=== PATIENT | female | born 1945 | race Caucasian/White ===

== ENCOUNTER 2018-03-10 22:41 | Inpatient (IN) | payer MEDICARE, OTHER ==
[~2018-03-10] VITALS: Ht 167.6 cm; Wt 72.0 kg
[~2018-03-10 22:41] MED LIST: ACET-812 PO; CANA300T PO; CELE-193 PO; CLOP75TA15 PO; DICL100G15 TOP; DULO60CA64 PO; ERGO500014 PO; ESTR0.3T3 PO; EZET10TA13 PO; INSU100I5 SQ; INSU100V2 SQ; LEVO500T89 PO; LEVO5TAB13 PO; LIDO700A5 TOP; LOSA50TA37 PO; MAGN250T29 PO; METF10002 PO; MULT-1085 PO; NEBI5TAB10 PO; PREG100C PO; VITA1CAP PO; [UNRECOGNIZED DRUG - CODE] PO
[2018-03-10] MEDS ORDERED: morphine 4 MG/ML inj SYRINge IV ONE (23:10)
[2018-03-10] MEDS ORDERED: ondansetron/PF 4mg/2ml inj IV ONE (23:10)
[2018-03-10] MEDS ORDERED: iohexol 350MG/ML 100ml bottle IV ONE (23:24)
[2018-03-10 23:29] LABS: BASOPHILS # (AUTO) 0.1 X10'3 (0-0.2); BASOPHILS % (AUTO) 0.8 % (0-1); EOSINOPHILS # (AUTO) 0.1 X10'3 (0-0.9); EOSINOPHILS % (AUTO) 0.9 % (0-6); HEMATOCRIT 39.9 % (35.0-45.0); HEMOGLOBIN 13.1 g/dl (12.0-16.0); LYMPHOCYTES # (AUTO) 1.1 X10'3 (1.1-4.8); LYMPHOCYTES % (AUTO) 8.5 % (21-51); MEAN CORPUSCULAR HEMOGLOBIN 28.7 PG (27.0-31.0); MEAN CORPUSCULAR HGB CONC 32.9 % (33.0-36.5); MEAN CORPUSCULAR VOLUME 87.2 FL (78-98); MEAN PLATELET VOLUME 8.7 FL (7.4-10.4); MONOCYTES # (AUTO) 0.7 X10'3 (0-0.9); MONOCYTES % (AUTO) 5.1 % (2-12); NEUTROPHILS % (AUTO) 84.7 % (42-75); PLATELET COUNT 176 X10'3 (140-440); RED BLOOD COUNT 4.57 X10'6 (4.20-5.60); RED CELL DISTRIBUTION WIDTH 14.5 % (11.5-14.5)
[2018-03-10 23:46] LABS: ALANINE AMINOTRANSFERASE 33 U/L (12-78); ALBUMIN 3.2 G/DL (3.4-5.0); ALBUMIN/GLOBULIN RATIO 0.9 (1.1-1.5); ALKALINE PHOSPHATASE 80 IU/L (46-116); ANION GAP 10 (8-16); ASPARTATE AMINO TRANSFERASE 19 U/L (10-37); BILIRUBIN,TOTAL 0.4 MG/DL (0.1-1.0); BLOOD UREA NITROGEN 17 MG/DL (7-18); BUN/CREATININE RATIO 22.7 (6.6-38.0); CALCIUM 9.5 MG/DL (8.5-10.1); CHLORIDE 104 MMOL/L (99-107); CREATININE 0.75 MG/DL (0.40-0.90); GLUCOSE 216 MG/DL (70-104); POTASSIUM 4.4 MMOL/L (3.5-5.1); SODIUM 140 MMOL/L (135-145); TOTAL CARBON DIOXIDE 26.2 MMOL/L (24-32); TOTAL PROTEIN 6.7 G/DL (6.4-8.2); eGFR 76 ML/MIN
[2018-03-11] MEDS ORDERED: morphine 4 MG/ML inj SYRINge IV ONE ×2 (00:30→01:40)
[2018-03-11] MEDS ORDERED: ketorolac tromethamine 15mg/ml inj. IV PRN (02:35)
[2018-03-11] MEDS ORDERED: orphenadrine citrate 60mg/2ml inj. IM PRN (02:35)
[2018-03-11] MEDS ORDERED: LIDOcaine 5% patch TP PRN (02:40)
[2018-03-11] MEDS ORDERED: ondansetron/PF 4mg/2ml inj IV PRN (02:45)
[2018-03-11] MEDS ORDERED: diphenhydrAMINE 25mg capsule PO PRN (02:45)
[2018-03-11] MEDS ORDERED: acetaminophen 650mg rectal suppository RC PRN (02:45)
[2018-03-11] MEDS ORDERED: mag hydrox/Alum hydrox/simeth 30ml oral suspension PO PRN (02:45)
[2018-03-11] MEDS ORDERED: diphenhydrAMINE 50 mg/ml inj IV PRN (02:45)
[2018-03-11] MEDS ORDERED: HYDROcodone/acetaminophen 5mg/325mg tablet PO PRN (02:45)
[2018-03-11] MEDS ORDERED: acetaminophen 325mg tablet PO PRN ×2 (02:45)
[2018-03-11] MEDS ORDERED: MESSAGE TO PHARMACY PO ONE (02:45)
[2018-03-11] MEDS ORDERED: metoclopramide 5 mg/ml inj IV PRN (02:45)
[2018-03-11] MEDS ORDERED: HYDROmorphone inj. 0.5 MG/0.5 ML DISP.SYRIN IV PRN ×2 (02:45)
[2018-03-11] MEDS ORDERED: glucagon, human recombinant 1mg kit SUBCUT PRN (02:45)
[2018-03-11] MEDS ORDERED: morphine 4 MG/ML inj SYRINge IV PRN ×2 (02:45)
[2018-03-11] MEDS ORDERED: dextrose 50%-water 50ml dispensing syringe IV PRN ×2 (02:45)
[2018-03-11] MEDS ORDERED: magnesium hydroxide 30ml (MOM) UD suspension PO PRN (02:45)
[2018-03-11] MEDS ORDERED: dextrose ORAL solution 15 GM/59 ML bottle PO PRN (02:45)
[2018-03-11] MEDS ORDERED: bisacodyl 10mg suppository rectal RC PRN (02:45)
[2018-03-11 03:15] LABS: PARTIAL THROMBOPLASTIN TIME 27 SECONDS (22-32); PROTHROMBIN TIME 10.4 SECONDS (9.0-12.0)
[2018-03-11] MEDS: ketorolac tromethamine 15mg/ml inj. IV PRN ×2 (03:16→21:26)
[2018-03-11] MEDS: normal saline 1000ml 1,000 ML IV SCH ×3 (03:17→15:58)
[2018-03-11 03:51] LABS: CREATINE KINASE 78 U/L (26-192); MAGNESIUM 1.7 MG/DL (1.5-2.4)
[2018-03-11 04:04] LABS: C-REACTIVE PROTEIN 1.81 MG/DL (0.0-0.5)
[2018-03-11 04:15] VITALS: BP 134/52
[2018-03-11 04:32] LABS: CLARITY,URINE CLEAR (Clear); COLOR,URINE YELLOW (Yellow); GLUCOSE, URINE >=1000 mg/dl (Neg); KETONES,URINE 15 mg/dl (Neg); LEUKOCYTE ESTERASE ,URINE NEGATIVE (Neg); NITRITES, URINE NEGATIVE (Neg); OCCULT BLOOD,URINE NEGATIVE (Neg); PROTEIN,URINE NEGATIVE (Neg); UROBILINOGEN,URINE 0.2 E.U/dL (0.2-1.0)
[2018-03-11 04:35] LABS: UA COLLECTION TYPE CLN CATCH MIDSTREAM
[2018-03-11 04:38] LABS: BACTERIA,URINE NONE SEEN /HPF (Neg); RBC,URINE NONE SEEN /HPF (0-2); SQUAMOUS EPITHELIAL CELL,UR FEW /LPF (FEW); WBC,URINE 0-4 /HPF (0-4)
[2018-03-11 06:00] VITALS: BP 136/61
[2018-03-11] MEDS ORDERED: acetaminophen 1,000mg/100ml IV 100 ML IV SCH (08:00)
[2018-03-11] MEDS: losartan 50mg tablet PO SCH (09:05)
[2018-03-11] MEDS: duloxetine 30mg CAPSULE.DR PO SCH ×2 (09:05→20:32)
[2018-03-11] MEDS: pregabalin 25mg capsule PO SCH ×2 (09:06→20:32)
[2018-03-11] MEDS: ezetimibe 10mg tablet PO SCH (09:06)
[2018-03-11 10:00] VITALS: BP 136/51
[2018-03-11] MEDS: HYDROcodone/acetaminophen 10/325mg tab PO PRN ×2 (11:38→18:15)
[2018-03-11 12:00] LABS: BASOPHILS % (AUTO) 0.2 % (0-1); EOSINOPHILS # (AUTO) 0.3 X10'3 (0-0.9); EOSINOPHILS % (AUTO) 2.3 % (0-6); HEMOGLOBIN 12.7 g/dl (12.0-16.0); LYMPHOCYTES % (AUTO) 8.9 % (21-51); MEAN CORPUSCULAR HEMOGLOBIN 28.7 PG (27.0-31.0); MEAN CORPUSCULAR HGB CONC 32.5 % (33.0-36.5); MEAN CORPUSCULAR VOLUME 88.4 FL (78-98); MEAN PLATELET VOLUME 8.8 FL (7.4-10.4); MONOCYTES # (AUTO) 0.7 X10'3 (0-0.9); MONOCYTES % (AUTO) 6.7 % (2-12); NEUTROPHILS % (AUTO) 81.9 % (42-75); PLATELET COUNT 179 X10'3 (140-440); RED BLOOD COUNT 4.41 X10'6 (4.20-5.60); RED CELL DISTRIBUTION WIDTH 15.2 % (11.5-14.5); WHITE BLOOD COUNT 10.9 X10'3 (4.5-11.0)
[2018-03-11] MEDS: dextrose ORAL solution 15 GM/59 ML bottle PO PRN ×2 (13:30→13:43)
[2018-03-11] MEDS ORDERED: INSU100I29 SQ (15:26)
[2018-03-11] MEDS ORDERED: ERGO400C PO (15:26)
[2018-03-11 17:00] VITALS: BP 149/50
[2018-03-11] MEDS: clopidogrel 75mg tablet PO SCH (18:15)
[2018-03-11] MEDS: loratadine 10mg tablet PO SCH (20:32)
[2018-03-11] MEDS ORDERED: temazepam 15mg capsule PO PRN (21:00)
[2018-03-11] MEDS: insulin glargine (Lantus) pen - multi-dose SQ SCH (21:38)
[2018-03-11 22:00] VITALS: BP 166/63
[2018-03-12 02:00] VITALS: BP 142/49
[2018-03-12] MEDS: normal saline 1000ml 1,000 ML IV SCH ×2 (02:17→23:50)
[2018-03-12] MEDS: HYDROcodone/acetaminophen 10/325mg tab PO PRN ×4 (02:18→23:50)
[2018-03-12 06:00] VITALS: BP 109/28
[2018-03-12 06:24] LABS: BASOPHILS % (AUTO) 0.5 % (0-1); EOSINOPHILS # (AUTO) 0.3 X10'3 (0-0.9); EOSINOPHILS % (AUTO) 3.5 % (0-6); HEMATOCRIT 35.5 % (35.0-45.0); HEMOGLOBIN 11.7 g/dl (12.0-16.0); LYMPHOCYTES # (AUTO) 1.4 X10'3 (1.1-4.8); LYMPHOCYTES % (AUTO) 18.8 % (21-51); MEAN CORPUSCULAR HEMOGLOBIN 28.8 PG (27.0-31.0); MEAN CORPUSCULAR VOLUME 87.4 FL (78-98); MEAN PLATELET VOLUME 8.7 FL (7.4-10.4); MONOCYTES # (AUTO) 0.9 X10'3 (0-0.9); MONOCYTES % (AUTO) 12.3 % (2-12); NEUTROPHILS # (AUTO) 4.8 X10'3 (1.8-7.7); NEUTROPHILS % (AUTO) 64.9 % (42-75); PLATELET COUNT 157 X10'3 (140-440); RED BLOOD COUNT 4.06 X10'6 (4.20-5.60); WHITE BLOOD COUNT 7.4 X10'3 (4.5-11.0)
[2018-03-12 06:39] LABS: ALANINE AMINOTRANSFERASE 29 U/L (12-78); ALBUMIN 2.4 G/DL (3.4-5.0); ALBUMIN/GLOBULIN RATIO 0.6 (1.1-1.5); ALKALINE PHOSPHATASE 65 IU/L (46-116); ANION GAP 8 (8-16); ASPARTATE AMINO TRANSFERASE 19 U/L (10-37); BILIRUBIN,TOTAL 0.4 MG/DL (0.1-1.0); BLOOD UREA NITROGEN 13 MG/DL (7-18); CALCIUM 8.5 MG/DL (8.5-10.1); CHLORIDE 107 MMOL/L (99-107); CHOLESTEROL 103 MG/DL (0-200); CREATININE 0.65 MG/DL (0.40-0.90); GLUCOSE 74 MG/DL (70-104); HDL CHOLESTEROL 51 MG/DL (35-60); LDL CHOLESTEROL 36 MG/DL (50-100); POTASSIUM 3.8 MMOL/L (3.5-5.1); SODIUM 143 MMOL/L (135-145); TOTAL PROTEIN 6.1 G/DL (6.4-8.2); TRIGLYCERIDES 73 MG/DL (20-135); eGFR 90 ML/MIN
[2018-03-12] MEDS: dextrose ORAL solution 15 GM/59 ML bottle PO PRN (07:23)
[2018-03-12] MEDS: ezetimibe 10mg tablet PO SCH (07:39)
[2018-03-12] MEDS: cholecalciferol (vitamin D) 400 unit tablet PO SCH (07:40)
[2018-03-12] MEDS: clopidogrel 75mg tablet PO SCH (07:40)
[2018-03-12] MEDS: losartan 50mg tablet PO SCH (07:40)
[2018-03-12] MEDS: duloxetine 30mg CAPSULE.DR PO SCH ×2 (07:42→20:48)
[2018-03-12] MEDS: pregabalin 25mg capsule PO SCH ×2 (07:45→20:48)
[2018-03-12 10:00] VITALS: BP 145/56
[2018-03-12] MEDS ORDERED: gadopentetate dimeglumine 7.5 MMOL/15 ML syringe ONE (10:37)
[2018-03-12] MEDS: ketorolac tromethamine 15mg/ml inj. IV PRN ×2 (12:16→20:48)
[2018-03-12] MEDS: insulin Lispro (HumaLOG) vial - multi-dose SQ SCH ×2 (13:50→19:17)
[2018-03-12 17:07] VITALS: BP 145/57
[2018-03-12] MEDS: insulin glargine (Lantus) pen - multi-dose SQ SCH (20:46)
[2018-03-12] MEDS: loratadine 10mg tablet PO SCH (20:48)
[2018-03-12 22:05] VITALS: BP 161/61
[2018-03-13] MEDS: normal saline 1000ml 1,000 ML IV SCH ×2 (04:42→15:03)
[2018-03-13 06:00] VITALS: BP 154/57
[2018-03-13 06:16] LABS: BASOPHILS % (AUTO) 0.6 % (0-1); EOSINOPHILS # (AUTO) 0.3 X10'3 (0-0.9); EOSINOPHILS % (AUTO) 5.1 % (0-6); HEMOGLOBIN 11.4 g/dl (12.0-16.0); LYMPHOCYTES # (AUTO) 1.4 X10'3 (1.1-4.8); LYMPHOCYTES % (AUTO) 22.3 % (21-51); MEAN CORPUSCULAR HEMOGLOBIN 28.8 PG (27.0-31.0); MEAN CORPUSCULAR HGB CONC 32.6 % (33.0-36.5); MEAN CORPUSCULAR VOLUME 88.3 FL (78-98); MEAN PLATELET VOLUME 9.1 FL (7.4-10.4); MONOCYTES # (AUTO) 0.7 X10'3 (0-0.9); NEUTROPHILS # (AUTO) 3.7 X10'3 (1.8-7.7); PLATELET COUNT 157 X10'3 (140-440); RED BLOOD COUNT 3.96 X10'6 (4.20-5.60); RED CELL DISTRIBUTION WIDTH 15.1 % (11.5-14.5); WHITE BLOOD COUNT 6.2 X10'3 (4.5-11.0)
[2018-03-13 06:32] LABS: ALANINE AMINOTRANSFERASE 23 U/L (12-78); ALBUMIN 2.3 G/DL (3.4-5.0); ALBUMIN/GLOBULIN RATIO 0.6 (1.1-1.5); ALKALINE PHOSPHATASE 65 IU/L (46-116); ANION GAP 8 (8-16); ASPARTATE AMINO TRANSFERASE 19 U/L (10-37); BILIRUBIN,TOTAL 0.4 MG/DL (0.1-1.0); BLOOD UREA NITROGEN 16 MG/DL (7-18); BUN/CREATININE RATIO 28.1 (6.6-38.0); CALCIUM 8.1 MG/DL (8.5-10.1); CHLORIDE 108 MMOL/L (99-107); CREATININE 0.57 MG/DL (0.40-0.90); GLUCOSE 78 MG/DL (70-104); POTASSIUM 3.6 MMOL/L (3.5-5.1); SODIUM 142 MMOL/L (135-145); TOTAL CARBON DIOXIDE 25.7 MMOL/L (24-32); TOTAL PROTEIN 5.9 G/DL (6.4-8.2); eGFR > 90 ML/MIN
[2018-03-13] MEDS: duloxetine 30mg CAPSULE.DR PO SCH (07:58)
[2018-03-13] MEDS: clopidogrel 75mg tablet PO SCH (07:58)
[2018-03-13] MEDS: ezetimibe 10mg tablet PO SCH (07:58)
[2018-03-13] MEDS: losartan 50mg tablet PO SCH (07:58)
[2018-03-13] MEDS: cholecalciferol (vitamin D) 400 unit tablet PO SCH (07:58)
[2018-03-13] MEDS: pregabalin 25mg capsule PO SCH (07:58)
[2018-03-13] MEDS: insulin Lispro (HumaLOG) vial - multi-dose SQ SCH ×2 (08:29→13:40)
[2018-03-13] MEDS: HYDROcodone/acetaminophen 10/325mg tab PO PRN ×2 (09:20→16:06)
[2018-03-13 10:09] VITALS: BP 152/69
== END 2018-03-13 17:35 | disposition home or self-care (01) | DRG 552 ==
LOC: ER 22:42 → ED HOLD 03-11 02:42 → EDBEDREQ 03-11 02:59 → ORTHO 4S 03-11 03:41
PROVIDERS: ADMIT Family Medicine; ATTEND Internal Medicine
DX: M54.2 Cervicalgia (principal); R00.1 Bradycardia, unspecified; E86.0 Dehydration; I16.1 Hypertensive emergency; E78.5 Hyperlipidemia, unspecified; I25.10 Atherosclerotic heart disease of native coronary artery without angina pectoris; D72.829 Elevated white blood cell count, unspecified; G89.4 Chronic pain syndrome; I10 Essential (primary) hypertension; K31.9 Disease of stomach and duodenum, unspecified; M19.90 Unspecified osteoarthritis, unspecified site; Z90.710 Acquired absence of both cervix and uterus; Z79.899 Other long term (current) drug therapy; Z79.01 Long term (current) use of anticoagulants; Z79.4 Long term (current) use of insulin
CPT/HCPCS: 36415; 70496; 70498; 72141; 80053; 80061; 81001; 82550; 82948; 83036; 83735; 83880; 84443; 85025; 85610; 85651; 85730; 86140; 87070; 99285; A9579; J1815; J1885; J2270; J2360; J2405; J7030; L0172; Q9967

== ENCOUNTER 2018-06-11 23:36 | Emergency (ER) | payer MEDICARE, OTHER ==
[~2018-06-11] VITALS: Ht 167.6 cm; Wt 90.9 kg
[~2018-06-11 23:36] MED LIST changes: -ACET-812 PO; +ERGO400C PO; -ERGO500014 PO; +INSU100I29 SQ; -INSU100I5 SQ; -INSU100V2 SQ; -LEVO500T89 PO; -METF10002 PO; +METF10004 PO; -VITA1CAP PO
[2018-06-12] MEDS ORDERED: HYDROcodone/acetaminophen 5mg/325mg tablet PO ONE (00:40)
[2018-06-12 00:53] VITALS: BP 171/80
== END 2018-06-12 00:59 | disposition home or self-care (01) ==
LOC: ER 23:37
DX: M25.462 Effusion, left knee (principal); I25.10 Atherosclerotic heart disease of native coronary artery without angina pectoris; I10 Essential (primary) hypertension; E11.9 Type 2 diabetes mellitus without complications; G89.29 Other chronic pain; Z90.710 Acquired absence of both cervix and uterus; Z98.61 Coronary angioplasty status; Z79.899 Other long term (current) drug therapy; Z79.4 Long term (current) use of insulin
CPT/HCPCS: 29505; 73564; 99284

== ENCOUNTER 2018-06-19 09:19 | Outpatient (CLI) | payer MEDICARE, OTHER ==
[2018-06-19 09:20] VITALS: BP 157/70
== END 2018-06-19 10:06 | disposition home or self-care (01) ==
LOC: ORTHO 09:19
PROVIDERS: ATTEND Nurse Practitioner Family
DX: S89.92XA Unspecified injury of left lower leg, initial encounter (principal); I10 Essential (primary) hypertension; E11.9 Type 2 diabetes mellitus without complications; Z79.899 Other long term (current) drug therapy; Z90.710 Acquired absence of both cervix and uterus; Z95.2 Presence of prosthetic heart valve; Z87.891 Personal history of nicotine dependence; Z95.5 Presence of coronary angioplasty implant and graft; X58.XXXA Exposure to other specified factors, initial encounter; Y93.89 Activity, other specified; Y92.89 Other specified places as the place of occurrence of the external cause; Y99.8 Other external cause status
CPT/HCPCS: 99213

== ENCOUNTER 2018-06-29 08:34 | Outpatient (CLI) | payer MEDICARE, OTHER | END 2018-06-29 23:59 | disposition home or self-care (01) | LOC: RAD 08:34 | PROVIDERS: ATTEND Nurse Practitioner Family | DX: S83.272A Complex tear of lateral meniscus, current injury, left knee, initial encounter (principal); S83.232A Complex tear of medial meniscus, current injury, left knee, initial encounter; S83.512A Sprain of anterior cruciate ligament of left knee, initial encounter; S83.412A Sprain of medial collateral ligament of left knee, initial encounter; S83.522A Sprain of posterior cruciate ligament of left knee, initial encounter; M71.22 Synovial cyst of popliteal space [Baker], left knee; M25.462 Effusion, left knee; R60.0 Localized edema; I10 Essential (primary) hypertension; E11.9 Type 2 diabetes mellitus without complications; Z79.4 Long term (current) use of insulin; Z90.710 Acquired absence of both cervix and uterus; Z79.899 Other long term (current) drug therapy; Z87.891 Personal history of nicotine dependence; X58.XXXA Exposure to other specified factors, initial encounter; Y93.89 Activity, other specified; Y92.89 Other specified places as the place of occurrence of the external cause; Y99.8 Other external cause status | CPT/HCPCS: 73721 ==

== ENCOUNTER 2019-08-24 12:10 | Observation (INO) | payer MEDICARE, OTHER ==
[~2019-08-24] VITALS: Ht 167.6 cm; Wt 87.3 kg
[~2019-08-24 12:10] MED LIST changes: -DULO60CA64 PO; +DULO60CA65 PO; -EZET10TA13 PO; -LOSA50TA37 PO; +LOSA50TA64 PO; +METF-438 PO; -METF10004 PO; +ZET10T PO
[2019-08-24] MEDS ORDERED: aspirin 81mg tab.chew PO ONE (12:35)
[2019-08-24 12:50] LABS: BASOPHILS # (AUTO) 0.1 X10'3 (0-0.2); EOSINOPHILS # (AUTO) 0.2 X10'3 (0-0.9); EOSINOPHILS % (AUTO) 3.5 % (0-6); HEMATOCRIT 39.7 % (35.0-45.0); LYMPHOCYTES # (AUTO) 1.3 X10'3 (1.1-4.8); LYMPHOCYTES % (AUTO) 21.2 % (21-51); MEAN CORPUSCULAR HEMOGLOBIN 28.8 PG (27.0-31.0); MEAN CORPUSCULAR HGB CONC 32.7 g/dL (33.0-36.5); MEAN PLATELET VOLUME 8.9 FL (7.4-10.4); MONOCYTES # (AUTO) 0.4 X10'3 (0-0.9); MONOCYTES % (AUTO) 7.4 % (2-12); NEUTROPHILS % (AUTO) 66.9 % (42-75); PLATELET COUNT 206 X10'3 (140-440); RED BLOOD COUNT 4.51 X10'6 (4.20-5.60); RED CELL DISTRIBUTION WIDTH 14.4 % (11.5-14.5)
[2019-08-24 12:56] LABS: ALANINE AMINOTRANSFERASE 40 U/L (12-78); ALBUMIN 3.2 G/DL (3.4-5.0); ALBUMIN/GLOBULIN RATIO 0.8 (1.1-1.5); ALKALINE PHOSPHATASE 96 IU/L (46-116); ANION GAP 12 (8-16); ASPARTATE AMINO TRANSFERASE 24 U/L (10-37); BILIRUBIN,TOTAL 0.3 MG/DL (0.1-1.0); BLOOD UREA NITROGEN 14 MG/DL (7-18); BUN/CREATININE RATIO 14.9 (6.6-38.0); CALCIUM 9.1 MG/DL (8.5-10.1); CHLORIDE 102 MMOL/L (99-107); CREATININE 0.94 MG/DL (0.40-0.90); GLUCOSE 353 MG/DL (70-104); POTASSIUM 4.2 MMOL/L (3.5-5.1); SODIUM 141 MMOL/L (135-145); TOTAL CARBON DIOXIDE 27.4 MMOL/L (24-32); TOTAL PROTEIN 7.1 G/DL (6.4-8.2); eGFR 59 ML/MIN
[2019-08-24 13:03] LABS: MAGNESIUM 1.5 MG/DL (1.5-2.4)
[2019-08-24] MEDS ORDERED: ATOR80TA PO (13:38)
[2019-08-24] MEDS ORDERED: magnesium 2GM in 50ml NS 50 ML IV PRN (14:25)
[2019-08-24] MEDS ORDERED: morphine 2 MG/ML inj. syringe IV PRN (14:25)
[2019-08-24] MEDS ORDERED: nitroGLYCERIN 0.4mg SUBLingual tab SL PRN (14:25)
[2019-08-24] MEDS ORDERED: potassium Cl 20 mEq SR tablet PO PRN ×2 (14:25)
[2019-08-24] MEDS ORDERED: magnesium 4gm in 100ml NS 100 ML IV PRN (14:25)
[2019-08-24] MEDS ORDERED: metoprolol tartrate 1mg/ml inj IV PRN ×2 (14:25→18:20)
[2019-08-24] MEDS ORDERED: aminophylline 250mg/10ml inj. IV PRN (14:25)
[2019-08-24] MEDS ORDERED: potassium CL 10mEq/100ml bag 100 ML IV PRN ×2 (14:25)
[2019-08-24] MEDS ORDERED: ondansetron/PF 4mg/2ml inj IV PRN (14:25)
[2019-08-24] MEDS ORDERED: regadenoson 0.4mg/5ml syringe IV ONE (14:25)
[2019-08-24] MEDS ORDERED: magnesium Cl slow-release 64mg tablet PO PRN (14:25)
[2019-08-24 15:44] VITALS: BP 177/80
[2019-08-24] MEDS ORDERED: metoprolol tartrate 1mg/ml inj IV ONE (17:25)
[2019-08-24 18:00] VITALS: BP 176/84
[2019-08-24] MEDS: acetaminophen 325mg tablet PO PRN (18:46)
[2019-08-24] MEDS: heparin, porcine 5000 units/ml vial SQ SCH (19:28)
[2019-08-24] MEDS: metoprolol tartrate 25mg tablet PO SCH (19:28)
[2019-08-24 22:00] VITALS: BP 175/79
[2019-08-24] MEDS ORDERED: glucagon, human recombinant 1mg kit SUBCUT PRN (22:35)
[2019-08-24] MEDS ORDERED: dextrose 50%-water 50ml dispensing syringe IV PRN ×2 (22:35)
[2019-08-24] MEDS ORDERED: MESSAGE TO PHARMACY PO ONE (22:35)
[2019-08-24] MEDS ORDERED: dextrose ORAL solution 15 GM/59 ML bottle PO PRN ×2 (22:35)
[2019-08-24] MEDS ORDERED: regadenoson 0.4mg/5ml syringe IV PRN (22:50)
[2019-08-25] VITALS (13 sets, daily range): BP systolic 133–202; BP diastolic 58–82
[2019-08-25 01:24] LABS: BASOPHILS # (AUTO) 0.1 X10'3 (0-0.2); BASOPHILS % (AUTO) 0.9 % (0-1); EOSINOPHILS # (AUTO) 0.3 X10'3 (0-0.9); EOSINOPHILS % (AUTO) 4.2 % (0-6); HEMATOCRIT 40.5 % (35.0-45.0); HEMOGLOBIN 13.2 g/dl (12.0-16.0); LYMPHOCYTES # (AUTO) 1.7 X10'3 (1.1-4.8); LYMPHOCYTES % (AUTO) 23.3 % (21-51); MEAN CORPUSCULAR HEMOGLOBIN 28.5 PG (27.0-31.0); MEAN CORPUSCULAR HGB CONC 32.5 g/dL (33.0-36.5); MEAN CORPUSCULAR VOLUME 87.7 FL (78-98); MEAN PLATELET VOLUME 8.9 FL (7.4-10.4); MONOCYTES # (AUTO) 0.6 X10'3 (0-0.9); MONOCYTES % (AUTO) 8.9 % (2-12); NEUTROPHILS # (AUTO) 4.5 X10'3 (1.8-7.7); NEUTROPHILS % (AUTO) 62.7 % (42-75); PLATELET COUNT 201 X10'3 (140-440); RED BLOOD COUNT 4.61 X10'6 (4.20-5.60); RED CELL DISTRIBUTION WIDTH 14.1 % (11.5-14.5); WHITE BLOOD COUNT 7.2 X10'3 (4.5-11.0)
[2019-08-25 01:41] LABS: ANION GAP 7 (8-16); BLOOD UREA NITROGEN 14 MG/DL (7-18); BUN/CREATININE RATIO 19.2 (6.6-38.0); CALCIUM 9.4 MG/DL (8.5-10.1); CHLORIDE 103 MMOL/L (99-107); CREATININE 0.73 MG/DL (0.40-0.90); GLUCOSE 295 MG/DL (70-104); MAGNESIUM 1.5 MG/DL (1.5-2.4); POTASSIUM 3.9 MMOL/L (3.5-5.1); SODIUM 141 MMOL/L (135-145); eGFR 78 ML/MIN
--- NOTE | 2019-08-25 03:57 | NUR ---
PAGER ID: [phone] MESSAGE: Lauryn Gilmore, Room 31, SB in 170's and 180's, gave Lopressor 5mg IV, blood pressure is going up, latest at 203/73, HR 70. Pt scheduled for stress test this morning. Ranulfo GOLD. ACCE [id number] Addendum: 08/25/19 at 0404 by Ranulfo Love RN Dr. Peralta called back and ordered Hydralazine 10mg IV Q4hr PRN, with the parameter to give the medication with SBP greater than 160. No other orders were given at this time.
[2019-08-25] MEDS ORDERED: hydrALAZINE 20mg/ml inj. IV PRN (04:00)
--- NOTE | 2019-08-25 06:21 | NUR ---
Gave report to Charli. Answered all the questions.
[2019-08-25] MEDS ORDERED: K and/or MAG REPLACEMENT MC SCH (08:00)
[2019-08-25] MEDS ORDERED: pregabalin 25mg capsule PO SCH (08:00)
[2019-08-25] MEDS: insulin Lispro (HumaLOG) vial - multi-dose SQ SCH ×2 (08:03→14:37)
[2019-08-25] MEDS ORDERED: ALPRAZolam 0.25mg tablet PO PRN (10:05)
--- NOTE | 2019-08-25 10:06 | NUR ---
pt very anxious this AM. No PRN anxiolytics to administer. Pt stated this AM that she felt like an elephant was on her chest. Respirations elevated. IV Morphine administered with positive result. Pts anxiety and chest pressure decreased. Notified Dr. Concepcion of incident, she concurred this was an anxiety attack. Xanax 0.25mg ordered PRN for pt. Addendum: 08/25/19 at 1541 by Claudine May RN Xanax had a positive effect. Pt calm the rest of the day.
--- NOTE | 2019-08-25 11:55 | NUR ---
Patient states last BM was on Aug 22, 2019. Patient states they usually go 3-4 days without a BM then usually has diarrhea when they actually void. Addendum: 08/25/19 at 1159 by Alfred SHAIKH Amended: Links added.
[2019-08-25] MEDS: metoprolol tartrate 25mg tablet PO SCH (11:56)
[2019-08-25] MEDS: heparin, porcine 5000 units/ml vial SQ SCH (11:57)
[2019-08-25] MEDS: acetaminophen 325mg tablet PO PRN (12:02)
[2019-08-25] MEDS ORDERED: calcium carbonate 500mg tablet PO SCH (12:30)
[2019-08-25] MEDS ORDERED: FAMO40TA73 PO (14:43)
--- NOTE | 2019-08-25 15:37 | NUR ---
Reviewed discharge instructions and new prescription with pt. Pt verbalized understanding. IV removed. Pt awaiting her transportation home.
[2019-08-25] MEDS ORDERED: insulin glargine (Lantus) pen - multi-dose SQ SCH (21:00)
[2019-08-26] MEDS ORDERED: atorvastatin 20mg tablet PO SCH (08:00)
[2019-08-26] MEDS ORDERED: estrogens, conjugated 0.3mg tablet PO SCH (08:00)
[2019-08-26] MEDS ORDERED: duloxetine 30mg CAPSULE.DR PO SCH (08:00)
[2019-08-26] MEDS ORDERED: ezetimibe 10mg tablet PO SCH (08:00)
[2019-08-26] MEDS ORDERED: celeCOXIB 100mg capsule PO SCH (08:00)
[2019-08-26] MEDS ORDERED: aspirin 81mg tablet.DR PO SCH (08:00)
[2019-08-26] MEDS ORDERED: losartan 50mg tablet PO SCH (08:00)
[2019-08-26] MEDS ORDERED: clopidogrel 75mg tablet PO SCH (08:00)
== END 2019-08-25 16:00 | disposition home or self-care (01) ==
LOC: ER 12:11 → ED HOLD 14:42 → MED 3N 16:08
PROVIDERS: ADMIT Internal Medicine; ATTEND Internal Medicine
DX: I25.119 Atherosclerotic heart disease of native coronary artery with unspecified angina pectoris (principal); M19.90 Unspecified osteoarthritis, unspecified site; Z87.891 Personal history of nicotine dependence; Z90.710 Acquired absence of both cervix and uterus; K21.9 Gastro-esophageal reflux disease without esophagitis; I25.2 Old myocardial infarction; E78.5 Hyperlipidemia, unspecified; I11.0 Hypertensive heart disease with heart failure; I50.9 Heart failure, unspecified; I21.4 Non-ST elevation (NSTEMI) myocardial infarction; E11.42 Type 2 diabetes mellitus with diabetic polyneuropathy; Z79.02 Long term (current) use of antithrombotics/antiplatelets; Z79.84 Long term (current) use of oral hypoglycemic drugs; Z82.49 Family history of ischemic heart disease and other diseases of the circulatory system; Z95.5 Presence of coronary angioplasty implant and graft; Z95.2 Presence of prosthetic heart valve
CPT/HCPCS: 36415; 71045; 78452; 80048; 80053; 82948; 83735; 83880; 84484; 85025; 87081; 93005; 93017; 96372; 96374; 96375; 96376; 99284; A9500; G0378; J0280; J0360; J1644; J1815; J2270; J2785; J3490

== ENCOUNTER 2020-05-24 06:39 | Day surgery (SDC) | payer MEDICARE, OTHER ==
[2020-05-23 17:07] LABS: BASOPHILS % (AUTO) 0.6 % (0-1); EOSINOPHILS # (AUTO) 0.3 X10'3 (0-0.9); HEMATOCRIT 41.8 % (35.0-45.0); HEMOGLOBIN 13.6 g/dl (12.0-16.0); LYMPHOCYTES # (AUTO) 1.5 X10'3 (1.1-4.8); LYMPHOCYTES % (AUTO) 16.8 % (21-51); MEAN CORPUSCULAR HEMOGLOBIN 29.4 PG (27.0-31.0); MEAN CORPUSCULAR HGB CONC 32.4 g/dL (33.0-36.5); MEAN CORPUSCULAR VOLUME 90.6 FL (78-98); MEAN PLATELET VOLUME 8.9 FL (7.4-10.4); MONOCYTES # (AUTO) 0.7 X10'3 (0-0.9); MONOCYTES % (AUTO) 7.9 % (2-12); NEUTROPHILS # (AUTO) 6.2 X10'3 (1.8-7.7); NEUTROPHILS % (AUTO) 71.7 % (42-75); PLATELET COUNT 213 X10'3 (140-440); RED BLOOD COUNT 4.62 X10'6 (4.20-5.60); RED CELL DISTRIBUTION WIDTH 14.3 % (11.5-14.5); WHITE BLOOD COUNT 8.6 X10'3 (4.5-11.0)
[2020-05-23 17:13] LABS: PARTIAL THROMBOPLASTIN TIME 27 SECONDS (22-32)
[2020-05-23 17:14] LABS: ALBUMIN 3.1 G/DL (3.4-5.0); ANION GAP 5 (8-16); BLOOD UREA NITROGEN 20 MG/DL (7-18); CHLORIDE 106 MMOL/L (99-107); CREATININE 0.77 MG/DL (0.40-0.90); GLUCOSE 234 MG/DL (70-104); POTASSIUM 4.2 MMOL/L (3.5-5.1); SODIUM 141 MMOL/L (135-145); TOTAL CARBON DIOXIDE 30.5 MMOL/L (24-32); eGFR 73 ML/MIN
[~2020-05-24] VITALS: Ht 167.6 cm; Wt 99.3 kg
[2020-05-24] VITALS (15 sets, daily range): BP systolic 136–210; BP diastolic 57–106
[~2020-05-24 06:39] MED LIST changes: +ATOR80TA PO; -CANA300T PO; -DICL100G15 TOP; -ERGO400C PO; +FAMO40TA73 PO; -INSU100I29 SQ; -LEVO5TAB13 PO; -LIDO700A5 TOP; -MAGN250T29 PO; -MULT-1085 PO
[2020-05-24] MEDS ORDERED: LORazepam 0.5 MG tablet PO PRN (07:00)
[2020-05-24] MEDS ORDERED: diphenhydrAMINE 25mg capsule PO PRN (07:00)
[2020-05-24] MEDS ORDERED: normal saline 1,000 ML IV SCH (07:00)
[2020-05-24] MEDS ORDERED: LIDOcaine/PRILOcaine 5gm cream TP ONE (07:20)
[2020-05-24] MEDS ORDERED: NITR0.4T51 SL (07:32)
[2020-05-24] MEDS ORDERED: DULO60CA45 PO (07:32)
[2020-05-24] MEDS ORDERED: ACET-812 PO (07:32)
[2020-05-24] MEDS ORDERED: ASCO500C15 PO (07:42)
[2020-05-24] MEDS ORDERED: MULT-1085 PO (07:42)
[2020-05-24] MEDS ORDERED: MV-M1TAB19 PO (07:42)
[2020-05-24] MEDS ORDERED: NEBI5TAB10 PO (07:42)
[2020-05-24] MEDS ORDERED: LYR25C PO (07:42)
[2020-05-24] MEDS ORDERED: INSU100I29 (07:42)
[2020-05-24] MEDS ORDERED: OMEP-50 PO (07:42)
[2020-05-24] MEDS ORDERED: CETI10CA PO (07:42)
[2020-05-24] MEDS ORDERED: [UNRECOGNIZED DRUG - REMARK] PO (07:42)
[2020-05-24] MEDS ORDERED: INSU100C10 SQ (07:42)
[2020-05-24] MEDS ORDERED: COQ-10 (07:42)
[2020-05-24] MEDS ORDERED: nitroGLYCERIN-Tridil 50MG/D5W 250 ML IV ONE (09:36)
[2020-05-24] MEDS ORDERED: fentaNYL/PF 50MCG/1 ML 2ML syringe ONE (09:36)
[2020-05-24] MEDS ORDERED: midazolam 2 mg/2 ml injection ONE (09:36)
[2020-05-24] MEDS ORDERED: verapamil 2.5 mg/ml inj IV ONE (09:36)
[2020-05-24] MEDS ORDERED: iohexol 350MG/ML 100ml bottle IV ONE ×2 (09:37→11:03)
[2020-05-24] MEDS ORDERED: heparin 1,000unit/ml 10ml vial 10 ML ONE (09:37)
[2020-05-24] MEDS ORDERED: LIDOcaine 1% (10mg/ml)w/preservative injection 20ml MDV ONE (09:37)
[2020-05-24] MEDS ORDERED: iohexol 350 MG/ML 50ML vial IV ONE (09:37)
[2020-05-24] MEDS ORDERED: heparin 25,000 UNIT/250ml bag 250 ML IV ONE (11:00)
[2020-05-24] MEDS ORDERED: heparin 1,000 UNITS/NS 500ml 500 ML ONE (11:03)
[2020-05-24] MEDS ORDERED: clopidogrel 300mg tablet ONE (11:32)
[2020-05-24] MEDS ORDERED: proCHLORperazine 10 MG/2 ml inj IV PRN (12:20)
[2020-05-24] MEDS ORDERED: magnesium hydroxide 30ml (MOM) UD suspension PO PRN (12:20)
[2020-05-24] MEDS ORDERED: acetaminophen 325mg tablet PO PRN (12:20)
[2020-05-24] MEDS ORDERED: cyclobenzaprine 10mg tablet PO PRN (12:20)
[2020-05-24] MEDS ORDERED: OXAZEpam 15mg capsule PO PRN (12:20)
[2020-05-24] MEDS ORDERED: aspirin 81mg tab.chew PO ONE (12:25)
[2020-05-24] MEDS ORDERED: HYDROcodone/acetaminophen 10/325mg tab PO PRN ×2 (12:25)
[2020-05-24] MEDS ORDERED: hydrALAZINE 20mg/ml inj. IV STA (12:33)
[2020-05-24] MEDS ORDERED: nitroGLYCERIN-Tridil 50MG/D5W 250 ML IV PRN (12:35)
[2020-05-24] MEDS ORDERED: hydrALAZINE 20mg/ml inj. IV PRN (12:35)
--- NOTE | 2020-05-24 14:00 | NUR ---
Flores sanchez from [employer] in to remove right arterial groin sheath and deploy Angioseal closure device to right groin. Completed without any incident. Addendum: 05/24/20 at 1842 by John Faulkner RN Amended: Links added.
[2020-05-24 15:25] LABS: ISTAT HGB ART 13.3 g/dl (12.0-16.0); ISTAT Hct ART 39 %PCV (35-48); ISTAT O2 SATURATION ARTERIAL 95 % (95-98); ISTAT SOURCE ART
[2020-05-24] MEDS ORDERED: docusate sod 100mg capsule PO SCH (20:00)
[2020-05-25] MEDS ORDERED: clopidogrel 75mg tablet PO SCH (08:00)
[2020-05-25] MEDS ORDERED: aspirin 325mg tablet PO SCH (08:00)
== END 2020-05-24 19:50 | disposition home or self-care (01) ==
LOC: SSTAY O 06:39
PROVIDERS: ATTEND Internal Medicine Cardiovascular Disease
DX: R94.39 Abnormal result of other cardiovascular function study (principal); I25.10 Atherosclerotic heart disease of native coronary artery without angina pectoris; E11.9 Type 2 diabetes mellitus without complications; I10 Essential (primary) hypertension; J44.9 Chronic obstructive pulmonary disease, unspecified; I47.1 Supraventricular tachycardia; K21.9 Gastro-esophageal reflux disease without esophagitis; G47.30 Sleep apnea, unspecified; E78.49 Other hyperlipidemia; M19.90 Unspecified osteoarthritis, unspecified site; E66.9 Obesity, unspecified; Z68.34 Body mass index [BMI] 34.0-34.9, adult; Z95.5 Presence of coronary angioplasty implant and graft; Z90.710 Acquired absence of both cervix and uterus; Z98.890 Other specified postprocedural states; Z87.891 Personal history of nicotine dependence; Z95.2 Presence of prosthetic heart valve; Z79.01 Long term (current) use of anticoagulants; Z79.899 Other long term (current) drug therapy; Z82.49 Family history of ischemic heart disease and other diseases of the circulatory system
CPT/HCPCS: 36415; 76937; 80048; 82803; 82948; 85014; 85025; 85347; 85610; 85730; 93005; 93460; 93567; 99152; 99153; C1725; C1751; C1760; C1769; C1874; C1894; C9600; J0360; J1644; J2001; J2250; J3010; J7030; Q0163; Q9967; 36217; A4620; A5120; A6258; A6449; J3490

== ENCOUNTER 2022-10-12 21:25 | Emergency (ER) | payer MEDICARE, OTHER ==
[~2022-10-12] VITALS: Ht 168.9 cm; Wt 100.0 kg
[~2022-10-12 21:25] MED LIST changes: +ACET-812 PO; +ASCO500C18 PO; -CELE-193 PO; +CETI10CA PO; +COQ-10; +DULO60CA60 PO; -DULO60CA65 PO; -FAMO40TA73 PO; +INSU100C10 SQ; +INSU100I29; +LYR25C PO; -METF-438 PO; +MULT-1085 PO; +MV-M1TAB19 PO; +NITR0.4T51 SL; +OMEP20CA16 PO; -PREG100C PO; -ZET10T PO; +[UNRECOGNIZED DRUG - REMARK] PO
[2022-10-13 01:42] LABS: BASOPHILS % (AUTO) 0.6 % (0-1); EOSINOPHILS # (AUTO) 0.1 X10'3 (0-0.9); EOSINOPHILS % (AUTO) 1.2 % (0-6); HEMATOCRIT 39.2 % (35.0-45.0); HEMOGLOBIN 12.5 g/dl (12.0-16.0); LYMPHOCYTES % (AUTO) 18.9 % (21-51); MEAN CORPUSCULAR HEMOGLOBIN 25.2 PG (27.0-31.0); MEAN CORPUSCULAR HGB CONC 31.8 g/dL (33.0-36.5); MEAN CORPUSCULAR VOLUME 79.2 FL (78-98); MEAN PLATELET VOLUME 8.3 FL (7.4-10.4); MONOCYTES # (AUTO) 0.6 X10'3 (0-0.9); MONOCYTES % (AUTO) 11.1 % (2-12); NEUTROPHILS # (AUTO) 3.7 X10'3 (1.8-7.7); NEUTROPHILS % (AUTO) 68.2 % (42-75); PLATELET COUNT 184 X10'3 (140-440); RED BLOOD COUNT 4.95 X10'6 (4.20-5.60); RED CELL DISTRIBUTION WIDTH 19.6 % (11.5-14.5); WHITE BLOOD COUNT 5.4 X10'3 (4.5-11.0)
[2022-10-13 01:58] LABS: ALANINE AMINOTRANSFERASE 26 U/L (12-78); ALBUMIN/GLOBULIN RATIO 0.7 (1.1-1.5); ALKALINE PHOSPHATASE 101 IU/L (46-116); ANION GAP 9 (8-16); ASPARTATE AMINO TRANSFERASE 29 U/L (10-37); BILIRUBIN,TOTAL 0.2 MG/DL (0.1-1.0); BLOOD UREA NITROGEN 14 MG/DL (7-18); BUN/CREATININE RATIO 15.1 (6.6-38.0); CHLORIDE 102 MMOL/L (99-107); CREATININE 0.93 MG/DL (0.40-0.90); GLUCOSE 181 MG/DL (70-104); POTASSIUM 3.8 MMOL/L (3.5-5.1); SODIUM 139 MMOL/L (135-145); TOTAL PROTEIN 7.1 G/DL (6.4-8.2); eGFR 59 ML/MIN
[2022-10-13 02:02] LABS: MAGNESIUM 1.7 MG/DL (1.5-2.4)
[2022-10-13] MEDS ORDERED: ondansetron/PF 4mg/2ml inj IV ONE (02:35)
[2022-10-13] MEDS ORDERED: normal saline 1000ml 1,000 ML IV ONE (02:35)
[2022-10-13] MEDS ORDERED: normal saline 1000ml 1,000 ML IV SCH (02:40)
[2022-10-13] MEDS ORDERED: famotidine/PF 10 mg/ml inj IV ONE (02:45)
[2022-10-13 03:54] LABS: LIPASE 160 U/L (73-393)
[2022-10-13] MEDS ORDERED: ONDA4TAB12 PO (05:04)
[2022-10-13 05:31] VITALS: BP 148/73
[2022-10-13 06:10] LABS: CLARITY,URINE CLEAR (Clear); COLOR,URINE YELLOW (Yellow); GLUCOSE, URINE >=1000 mg/dl (Neg); KETONES,URINE 15 mg/dl (Neg); LEUKOCYTE ESTERASE ,URINE NEGATIVE (Neg); NITRITES, URINE NEGATIVE (Neg); OCCULT BLOOD,URINE NEGATIVE (Neg); PROTEIN,URINE NEGATIVE (Neg); UROBILINOGEN,URINE 0.2 E.U/dL (0.2-1.0)
[2022-10-13 06:11] LABS: UA COLLECTION TYPE URINAL
[2022-10-13 06:19] LABS: BACTERIA,URINE 1+ /HPF (Neg); MUCUS STRANDS FEW /LPF (Neg); RBC,URINE NONE SEEN /HPF (0-2); SQUAMOUS EPITHELIAL CELL,UR MODERATE /LPF (FEW); WBC,URINE 0-4 /HPF (0-4)
== END 2022-10-13 06:13 | disposition home or self-care (01) ==
LOC: ER 21:25
DX: U07.1 COVID-19 (principal); R11.2 Nausea with vomiting, unspecified; R42 Dizziness and giddiness; R19.7 Diarrhea, unspecified; R06.02 Shortness of breath; I25.10 Atherosclerotic heart disease of native coronary artery without angina pectoris; I10 Essential (primary) hypertension; E11.9 Type 2 diabetes mellitus without complications; M19.90 Unspecified osteoarthritis, unspecified site; G89.29 Other chronic pain; Z90.710 Acquired absence of both cervix and uterus; Z98.890 Other specified postprocedural states; Z79.899 Other long term (current) drug therapy
CPT/HCPCS: 36415; 71045; 80053; 81001; 83605; 83690; 83735; 84145; 84484; 85025; 87040; 87502; 87503; 87635; 93005; 96361; 96374; 96375; 99285; C9803; J2405; J3490; J7030

== ENCOUNTER 2024-01-01 19:33 | Emergency (ER) | payer MEDICARE, OTHER ==
[~2024-01-01] VITALS: Ht 167.6 cm; Wt 90.9 kg
[~2024-01-01 19:33] MED LIST changes: +ONDA4TAB12 PO
[2024-01-01 19:46] VITALS: TEMP 98.6
[2024-01-01 20:24] LABS: BASOPHILS # (AUTO) 0.1 X10'3 (0-0.2); BASOPHILS % (AUTO) 1.2 % (0-1); EOSINOPHILS # (AUTO) 0.2 X10'3 (0-0.9); EOSINOPHILS % (AUTO) 2.6 % (0-6); HEMATOCRIT 41.2 % (35.0-45.0); HEMOGLOBIN 13.7 g/dl (12.0-16.0); LYMPHOCYTES % (AUTO) 18.1 % (21-51); MEAN CORPUSCULAR HEMOGLOBIN 30.1 PG (27.0-31.0); MEAN CORPUSCULAR HGB CONC 33.2 g/dL (33.0-36.5); MEAN CORPUSCULAR VOLUME 90.6 FL (78-98); MEAN PLATELET VOLUME 9.3 FL (7.4-10.4); MONOCYTES # (AUTO) 0.6 X10'3 (0-0.9); MONOCYTES % (AUTO) 9.8 % (2-12); NEUTROPHILS # (AUTO) 3.9 X10'3 (1.8-7.7); NEUTROPHILS % (AUTO) 68.3 % (42-75); PLATELET COUNT 125 X10'3 (140-440); RED BLOOD COUNT 4.54 X10'6 (4.20-5.60); RED CELL DISTRIBUTION WIDTH 13.5 % (11.5-14.5); WHITE BLOOD COUNT 5.8 X10'3 (4.5-11.0)
[2024-01-01 20:36] LABS: APTT 25 SECONDS (22-32); D-DIMER 0.57 MG/L FEU (0-0.50); PROTHROMBIN TIME 10.8 SECONDS (9.0-12.0)
[2024-01-01 20:44] LABS: ANION GAP 10 (8-16); BLOOD UREA NITROGEN 8 MG/DL (7-18); BUN/CREATININE RATIO 10.5 (10.0-20.0); CALCIUM 8.3 MG/DL (8.5-10.1); CHLORIDE 101 MMOL/L (99-107); CREATININE 0.76 MG/DL (0.40-0.90); POTASSIUM 4.1 MMOL/L (3.5-5.1); PRO BRAIN NATRIURETIC PEPTIDE 617 PG/ML (0-450); SODIUM 137 MMOL/L (135-145); TOTAL CARBON DIOXIDE 26.3 MMOL/L (24-32); eCRCL 58 ML/MIN; eGFR 74 ML/MIN
[2024-01-01 20:53] LABS: GLUCOSE 442 MG/DL (70-104)
[2024-01-02] MEDS ORDERED: CefTRIAXone 500MG IM Kit w/LIDOcaine (for pt below or = to 150kg) IM ONE (00:40)
[2024-01-02] MEDS ORDERED: LEVONORGESTREL 1.5MG tablet 1.5 MG TABLET PO ONE (00:40)
[2024-01-02] MEDS ORDERED: furosemide 10 MG/1 ML 10ml inj IM ONE (02:00)
[2024-01-02] MEDS: furosemide 10 MG/1 ML 10ml inj IV ONE (02:19)
[2024-01-02] MEDS: insulin regular, human 10 units/0.1 ml syringe SQ ONE (02:25)
[2024-01-02 02:30] VITALS: BP 146/72; PULSE 79; RESP 20; O2SAT 100
[2024-01-02] MEDS ORDERED: metroNIDAZOLE 500mg tablet PO SCH (08:00)
[2024-01-02] MEDS ORDERED: DOXYCYCLINE 100MG CAPSULE PO SCH (08:30)
== END 2024-01-02 03:37 | disposition home or self-care (01) ==
LOC: ER 19:33
DX: R22.43 Localized swelling, mass and lump, lower limb, bilateral (principal); E11.65 Type 2 diabetes mellitus with hyperglycemia; I25.10 Atherosclerotic heart disease of native coronary artery without angina pectoris; R06.00 Dyspnea, unspecified; G89.29 Other chronic pain; Z98.890 Other specified postprocedural states; Z79.899 Other long term (current) drug therapy; Z90.710 Acquired absence of both cervix and uterus; Z79.4 Long term (current) use of insulin
CPT/HCPCS: 36415; 71045; 80048; 82948; 83880; 84484; 85025; 85379; 85610; 85730; 93005; 96374; 99285; J1815; J1940

== ENCOUNTER 2025-11-02 10:27 | Outpatient (CLI) | payer MEDICARE, OTHER ==
[~2025-11-02 10:27] MED LIST changes: -ACET-812 PO; -ASCO500C18 PO; +ATOR-429 PO; -ATOR80TA PO; +CELE-80 PO; -CETI10CA PO; -COQ-10; +DAPA10TA PO; -ESTR0.3T3 PO; +EZET10TA6 PO; +FURO-150 PO; -INSU100C10 SQ; +INSU100C4 SQ; -INSU100I29; +INSU100I29 SQ; +IODIXANOL 320 MG/ML INFUS..BTL 100ML IV ONE; -LYR25C PO; +METF-900 PO; +MONT-40 PO; -MULT-1085 PO; -MV-M1TAB19 PO; +NEBI20TA4 PO; -NEBI5TAB10 PO; -NITR0.4T51 SL; -OMEP20CA16 PO; -ONDA4TAB12 PO; +POTA-366 PO; +PREG100C PO; -[UNRECOGNIZED DRUG - CODE] PO; -[UNRECOGNIZED DRUG - REMARK] PO
[2025-11-02 11:05] LABS: MEAN PLATELET VOLUME 8.2 FL (7.4-10.4); RED CELL DISTRIBUTION WIDTH 14.5 % (11.5-14.5)
[2025-11-02 11:17] LABS: APTT 27 SECONDS (22-32); INR 1.0 INR
--- NOTE | 2025-11-02 11:43 | RADIOLOGY REPORT ---
CHEST RADIOGRAPH Indication: TAVR SOB Technique: Frontal and lateral view of the chest was obtained Comparison: DI CHEST,SINGLE VIEW on DOS: 01/01/24, CHEST,SINGLE VIEW on DOS: 10/13/22, CHEST,SINGLE VIEW on DOS: 08/24/19 FINDINGS: Lines and Tubes: None Lungs: Increased interstital prominence. This may represent pulmonary vascular congestion and/or viral pneumonia. Pleura: No effusion.No pneumothorax. Cardiomediastinal contours: Cardiomegaly. Bones: Unremarkable IMPRESSION: Increased interstital prominence. This may represent pulmonary vascular congestion and/or viral pneumonia.
[2025-11-02 11:58] LABS: CREATININE 0.71 MG/DL (0.40-0.90); PRO BRAIN NATRIURETIC PEPTIDE 2090 PG/ML (0-450); TOTAL CARBON DIOXIDE 32.0 MMOL/L (24-32); eGFR 79 ML/MIN
--- NOTE | 2025-11-02 13:16 | VASCULAR REPORT ---
Carotid duplex REASON FOR EXAM: Dizziness TECHNIQUE: Chicas scale, color doppler imaging and spectral analysis were performed. FINDINGS: On chicas scale and color imaging there is plaquing in the right carotid bulb and in the proximal right internal carotid artery. There is also some plaquing in the proximal left internal carotid artery. Velocities are as follows: (measured in cm/S): Right CCA 69 Left CCA 66 Right ICA 135 Left ICA 72 Right ICA/CCA 1.96 Left ICA/CCA 1.09 Flow in the vertebral arteries is antegrade. IMPRESSION: 1. No hemodynamically significant stenosis based on NASCET criteria. There is some plaquing noted in both proximal internal carotid arteries.
--- NOTE | 2025-11-02 18:45 | RADIOLOGY REPORT ---
CT CTA TAVR INDICATION: Stenosis TECHNIQUE: Gated CT angiography of the heart was performed along with CT angiography of the lower neck, chest, abdomen, and pelvis. MIP, MPR, and 3-D images were obtained. Measurements were performed on the [employer] workstation. All CT scans at this facility use dose modulation, iterative reconstruction, and/or weight based dosing when appropriate to reduce radiation dose to as low as reasonably achievable. COMPARISON: None available at the time of dictation. FINDINGS: ANNULAR PLANE DISTANCE: 18.6 x 17.2 mm AREA: 2.29 cm2 AVERAGE DIAMETER: 17.9 mm PERIMETER: 55.1 mm LEFT CORONARY ARTERY HEIGHT ABOVE ANNULAR PLANE: 13.2 mm RIGHT CORONARY ARTERY HEIGHT ABOVE ANNULAR PLANE: 12.1 mm LEFT CORONARY SINUS DIAMETER: 30.7 mm RIGHT CORONARY SINUS DIAMETER: 30.8 mm NONCORONARY CORONARY SINUS DIAMETER: 31 mm SINOTUBULAR JUNCTION DIAMETER: 24.8 mm RIGHT COMMON ILIAC ARTERY MINIMAL DIMENSIONS: 5.45 mm RIGHT EXTERNAL ILIAC ARTERY MINIMAL DIMENSIONS: 4.36 mm RIGHT COMMON FEMORAL ARTERY MINIMAL DIMENSIONS: 5.05 mm LEFT COMMON ILIAC ARTERY MINIMAL DIMENSIONS: 4.9 mm LEFT EXTERNAL ILIAC ARTERY MINIMAL DIMENSIONS: 4.4 mm LEFT COMMON FEMORAL ARTERY MINIMAL DIMENSIONS: 5.2 mm [LOWER NECK]: Unremarkable [LYMPH NODES/MEDIASTINUM]: Right hilar lymph node measuring 1.3 cm [CARDIOVASCULAR]: Normal cardiac size. No pericardial effusion. No aneurysmal dilatation of the great vessels. Coronary artery calcifications. prior aortic valvular replacement. [LUNG PARENCHYMA/PLEURAL SPACE]: Atelectasis and/or scarring in bilateral lung bases. Peribronchial thickening with diffuse distribution. [CHEST WALL]: Unremarkable. [LIVER]: Small possible flash filling hemangioma along the gallbladder fossa measuring 3-4 mm [SPLEEN]: Unremarkable. [PANCREAS]: Unremarkable. [GALLBLADDER AND BILIARY TREE]: No cholelithiasis. No biliary dilatation. [ADRENAL GLANDS]: Unremarkable [KIDNEYS]: No hydronephrosis. No nephroureterolithiasis. No suspicious focal lesion. [BLADDER]: Unremarkable for the degree distention. [PELVIC ORGANS]: Hysterectomy. [BOWEL/MESENTERY]: Minimal distal circumferential esophageal wall thickening. [id number] stool burden. Correlate for constipation [ASCITES]: Absent [LYMPHADENOPATHY]: No pathologically enlarged lymph nodes by CT size criteria [VASCULATURE]: Vascular calcifications. 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 Renal arteries are patent. [ABDOMINAL WALL]: Unremarkable. [MUSCULOSKELETAL]: No acute fracture or aggressive focal osseous lesion. Multifocal degenerative change of the visualized spine. 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 Multiple prior healed right lateral rib fractures. IMPRESSION: 1. TAVR planning with measurements as above. 2. 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
== END 2025-11-02 23:59 | disposition home or self-care (01) ==
LOC: RAD 10:27
PROVIDERS: ATTEND Internal Medicine Cardiovascular Disease
DX: I65.23 Occlusion and stenosis of bilateral carotid arteries (principal); I35.0 Nonrheumatic aortic (valve) stenosis; R06.02 Shortness of breath; I51.7 Cardiomegaly
CPT/HCPCS: 36415; 71046; 71275; 74174; 75572; 80053; 83880; 85025; 85610; 85730; 93880; Q9967